=== PATIENT | female | born 1930 | race Caucasian/White ===

== ENCOUNTER 2017-05-25 09:29 | Inpatient (IN) | payer MEDICARE, BC ==
[~2017-05-25] VITALS: Ht 162.6 cm; Wt 61.3 kg
[2017-05-25 10:18] LABS: BASOPHILS 0.5 % (0-2); EOSINOPHILS 2.2 % (0-7); HEMOGLOBIN 14.3 g/dL (12-16); IMMATURE GRANULOCYTES 0.2 % (0-5); LYMPHOCYTES 24.4 % (15-50); MCH 30.6 pg (26.0-34.0); MCHC 33.3 g/dL (31.0-37.0); MCV 92.1 fL (80.0-100.0); MEAN PLATELET VOLUME 11.4 fL (7.4-10.4); MONOCYTES 8.2 % (2-11); NEUTROPHILS 64.5 % (40-80); PLATELET COUNT 183 10x3/uL (130-400); RBC 4.67 10x6/uL (4.00-5.40); RDW 14.1 % (11.5-14.5); WBC 6.4 10x3/uL (4.8-10.8)
[2017-05-25 10:29] LABS: INR 2.19 (0.85-1.17); PROTIME 24.4 SECONDS (11.6-15.0)
[2017-05-25 10:30] LABS: APTT 31.8 SECONDS (22.8-39.4)
[2017-05-25 10:40] LABS: ANION GAP 13.1 mmol/L (8-16); BILIRUBIN - TOTAL 0.6 mg/dL (0.2-1.3); CALCIUM 9.3 mg/dL (8.5-10.1); CARBON DIOXIDE 27.9 mmol/L (21.0-32.0); PROTEIN - SERUM 7.8 g/dL (6.4-8.2)
--- NOTE | 2017-05-25 16:05 | NUR ---
RECEIVED PT TO ROOM 2136 VIA WHEELCHAIR, PT ACCOMPANIED BY SISTER. ORIENTED PT AND SISTER TO ROOM AND CALL LIGHT. EXPLAINED RATIONAL FOR SCD'S TO PT, PLACED SCD'S ON BILAT, AND NON SLIP SOCKS, YELLOW BAND AND HEART MONITOR. PT DID NOT KNOW WHAT MEDS SHE TAKES AT HOME, LIST PROVIDED FROM ER IS NOT UP TO DATE ACCORDING TO PT AND PT'S SISTER. SISTER STATED THAT SHE WOULD HAVE PTS'S DAUGHTER CALL UNIT TO GIVE A LIST OF MEDS. WILL ASSESS PT AND START PLAN OF CARE. PT DENIES ANY NEEDS AT THIS TIME, CALL LIGHT IN REACH, NAD NOTED, WILL CONT TO MONITOR.
[2017-05-25 16:11] VITALS: BP 132/72
[2017-05-25 16:37] VITALS: BP 132/72; BMI 22.3
[2017-05-25] MEDS ORDERED: BETAPACE 80 MG80 MG PO (17:59)
[2017-05-25] MEDS ORDERED: LIPITOR10 MG PO (17:59)
--- NOTE | 2017-05-25 18:00 | NUR ---
RECEIVED CALL FROM AL WILKINS PT'S DAUGHTER. AL PROVIDED ME WITH 5 MEDS THAT PT TAKES AT HOME. WILL RECONCILE MEDS AT THIS TIME.
[2017-05-25] MEDS ORDERED: COUMADIN2.5 MG PO (18:01)
[2017-05-25] MEDS ORDERED: SYNTHROID50 MCG PO (18:02)
[2017-05-25] MEDS ORDERED: VITAMIN D5000 UNIT PO (18:03)
--- NOTE | 2017-05-25 18:31 | NUR ---
PT IN BED, DENIES ANY NEEDS AT THIS TIME. RESP EVEN AND UNLABORED, ON 2L NC. RT AC IV PATENT. CALL LIGHT IN REACH, NAD NOTED, WILL CONTINUE TO MONITOR.
[2017-05-25 19:00] VITALS: BP 132/78
--- NOTE | 2017-05-25 19:20 | NUR ---
SITTING ON SIDE OF BED. DENIES PAIN OR ANY NEEDS. ORIENTED X4. IV IN R AC INTACT SL. TELEMETRY SHOWS 118 UCAFIB. BED IS LOW WITH SR UP X2. ORIENTED TO CALL LIGHT TO PUSH RED BUTTON FOR ANY NEEDS.
[2017-05-26] VITALS: BP 157/87
--- NOTE | 2017-05-26 00:30 | NUR ---
REQUESTED SCD'S TO AMBULATE TO BATHROOM. NO OTHER NEEDS VOICED.
[2017-05-26 04:10] VITALS: BP 146/100
[2017-05-26 04:57] LABS: HEMATOCRIT 42.1 % (36.0-48.0); HEMOGLOBIN 13.9 g/dL (12-16); MCH 30.1 pg (26.0-34.0); MCV 91.1 fL (80.0-100.0); MEAN PLATELET VOLUME 11.3 fL (7.4-10.4); PLATELET COUNT 175 10x3/uL (130-400); RBC 4.62 10x6/uL (4.00-5.40)
[2017-05-26 04:58] LABS: WBC 2.7 10x3/uL (4.8-10.8)
[2017-05-26 05:17] LABS: INR 2.18 (0.85-1.17); PROTIME 24.3 SECONDS (11.6-15.0)
[2017-05-26 05:19] LABS: D-DIMER-QUANTITATIVE 0.44 ug/mLFEU (0.20-0.54)
[2017-05-26 05:22] LABS: ALBUMIN 2.7 g/dL (3.4-5.0); ALKALINE PHOSPHATASE 44 U/L (46-116); ALT (SGPT) 20 U/L (10-68); BILIRUBIN - TOTAL 0.41 mg/dL (0.2-1.3); CALC OSMOLALITY 287 mosm/kg (275-300); CALCIUM 9.1 mg/dL (8.5-10.1); CARBON DIOXIDE 28.6 mmol/L (21.0-32.0); CHLORIDE - SERUM 105 mmol/L (98-107); CREATININE - SERUM 0.9 mg/dL (0.6-1.3); GLUCOSE 155 mg/dL (74-106); MAGNESIUM - SERUM 1.4 mg/dL (1.8-2.4); PHOSPHOROUS 3.4 mg/dL (2.5-4.9); POTASSIUM - SERUM 4.2 mmol/L (3.5-5.1); PROTEIN - SERUM 7.5 g/dL (6.4-8.2); SODIUM 141 mmol/L (136-145); UREA NITROGEN 23 mg/dL (7-18); eGFR NON AFRICAN AMERICAN 63 mL/min (90-120)
[2017-05-26 05:28] LABS: TROPONIN-I < 0.017 ng/mL (0.000-0.060)
[2017-05-26 05:59] LABS: LYMPHOCYTES 26 % (15-50); MONOCYTES 1 % (2-11); NEUTROPHILS 68 % (40-80); PLATELET ESTIMATE DECREASED
--- NOTE | 2017-05-26 07:05 | NUR ---
ASSESSMENT COMPLETED. TELEMERTY SHOWS UCAF AT 108. CARDIZEN DRIP STARTED AT 10CC/HR. O02 AT 2 L/M PER NS. RIGHT AC IV PATENT. SCDS ON. DENIES ANY NEEDS. CALL LIGHT IN REACH WITH SR UP.
[2017-05-26 07:55] VITALS: BP 137/63
--- NOTE | 2017-05-26 08:32 | NUR ---
RESP UL ON . IV PATENT. RESTS IN BED EATING BRK. CALL LIGHT IN REACH. WILL CONT. PLAN OF CARE.
[2017-05-26 08:39] LABS: BASOPHILS 0 % (0-2); EOSINOPHILS 0 % (0-7); HEMATOCRIT 43.6 % (36.0-48.0); HEMOGLOBIN 14.2 g/dL (12-16); LYMPHOCYTES 13.6 % (15-50); MCH 30.2 pg (26.0-34.0); MCHC 32.6 g/dL (31.0-37.0); MCV 92.8 fL (80.0-100.0); MEAN PLATELET VOLUME 11.1 fL (7.4-10.4); MONOCYTES 2.3 % (2-11); NEUTROPHILS 84.1 % (40-80); PLATELET COUNT 160 10x3/uL (130-400)
[2017-05-26 08:42] LABS: WBC 4.3 10x3/uL (4.8-10.8)
[2017-05-26 11:22] VITALS: BP 110/52
[2017-05-26 13:29] VITALS: Ht 162.6 cm; Wt 61.3 kg
[2017-05-26 15:11] LABS: HEMOGLOBIN A1C 6.7 % (4.8-6.0)
[2017-05-26 15:55] VITALS: BP 99/49
--- NOTE | 2017-05-26 17:19 | NUR ---
PT UP FOR DIET.FAMILY AT BEDSIDE. CALL LIGHT IN REACH WITH SR UP. CAF 68. NO NEEDS VOICED
[2017-05-26 19:00] VITALS: BP 125/56
--- NOTE | 2017-05-26 22:34 | NUR ---
1900-REPORT RECIEVED, SHIFT ASSESSMENT COMPLETE, PLEASE SEE FLOW SHEETS FOR DETAILS. DENIES PAIN/NEEDS ATT. IV PUMP GOES OF OFTEN AND PATIENT CONCERNED ABOUT TUBING, EXPLAINED HOW IT WORKED AND PATIENT UNDERSTOOD. BED LOW AND LOCKED, CALL LIGHT IN REACH. WILL CPOC.
[2017-05-27 00:55] VITALS: BP 103/55
[2017-05-27 04:02] VITALS: BP 110/59
--- NOTE | 2017-05-27 04:15 | NUR ---
0100-RESTING, DENIES PAIN/NEEDS ATT. BED LOW AND LOCKED, CALL LIGHT IN REACH. WILL CPOC. 0300-C/O BEEPING MACHINE, OFFERED ARM BOARD, ACCEPTED. BED LOW AND LOCKED, NO OTHER NEEDS ATT. CALL LIGHT IN REACH. WILL CPOC.
[2017-05-27 06:02] LABS: BASOPHILS 0 % (0-2); EOSINOPHILS 0 % (0-7); HEMATOCRIT 38.1 % (36.0-48.0); HEMOGLOBIN 12.4 g/dL (12-16); IMMATURE GRANULOCYTES 0.1 % (0-5); LYMPHOCYTES 5.9 % (15-50); MCH 29.5 pg (26.0-34.0); MCHC 32.5 g/dL (31.0-37.0); MEAN PLATELET VOLUME 11.6 fL (7.4-10.4); MONOCYTES 2.5 % (2-11); NEUTROPHILS 91.5 % (40-80); PLATELET COUNT 182 10x3/uL (130-400); RDW 14.4 % (11.5-14.5)
[2017-05-27 06:09] LABS: MCV 90.7 fL (80.0-100.0); WBC 9.5 10x3/uL (4.8-10.8)
[2017-05-27 06:25] LABS: ANION GAP 12.4 mmol/L (8-16); CALCIUM 8.6 mg/dL (8.5-10.1); CARBON DIOXIDE 27.1 mmol/L (21.0-32.0); POTASSIUM - SERUM 4.5 mmol/L (3.5-5.1)
[2017-05-27 06:44] LABS: PROTIME 29.4 SECONDS (11.6-15.0)
[2017-05-27 06:45] LABS: INR 2.76 (0.85-1.17)
[2017-05-27 07:45] VITALS: BP 153/66
--- NOTE | 2017-05-27 07:50 | NUR ---
ASSESSMENT PER FLOW SHEET.PT WITHOUT DISTRESS. DENIES NEEDS AT PRESENT. LIGHT BRUISING NOTED TO LEFT HIP. LIGHT PINK AREAS NOTED TO BUTTOCKS,NO SIGNS OF BREAKDOWN. INSTRUCTED PT TO CALL FOR NEEDS.CALL LIGHT IN REACH.
[2017-05-27 11:37] VITALS: BP 105/54
--- NOTE | 2017-05-27 12:52 | NUR ---
HAS BEEN UP TO BATHROOM AFTER LUNCH. HAD SOME EMESIS PER PT. DR. ANTHONY IN ROOM. PT STATES SHE GETS SICK AFTER MEALS AND MOST OF THE TIME WHILE DRINKING LIQUIDS.
[2017-05-27 16:08] VITALS: BP 103/52
--- NOTE | 2017-05-27 18:47 | NUR ---
REMAINS WITHOUT DISTRESS.WITHOUT CHANGE FROM INITIAL SHIFT ASSESSMENT.CONT PLAN OF CARE
--- NOTE | 2017-05-27 19:30 | NUR ---
AWAKE ALERT DENIES PAIN. REQUESTED ASSISTANCE TO BATHROOM. IV IN R AC INTACT WITH CARDIZEM INFUSING AT 10ML/HR. ASSESSMENTS COMPLETED. ORIENTED TO CALL LIGHT FOR ANY NEEDS.
[2017-05-27 20:32] VITALS: BP 109/59
--- NOTE | 2017-05-27 22:21 | NUR ---
CALLED LAB RE: [facility], STATED IT WILL BE READY IN APPROX. 10 MORE MINS.
[2017-05-28 00:05] VITALS: BP 112/53
--- NOTE | 2017-05-28 00:30 | NUR ---
2ND UNIT OF [facility] FINISHED. ASSISTED TO BATHROOM. UNDERSTANDS SHE IS NPO FOR EGD.
--- NOTE | 2017-05-28 04:46 | NUR ---
SITTING ON SIDE OF BED. OBTAINED SIGNATURE ON CONSENT FOR EGD.
[2017-05-28 05:21] VITALS: BP 134/69
[2017-05-28 05:45] LABS: BASOPHILS 0 % (0-2); EOSINOPHILS 0 % (0-7); HEMATOCRIT 37.7 % (36.0-48.0); HEMOGLOBIN 12.5 g/dL (12-16); IMMATURE GRANULOCYTES 0.2 % (0-5); LYMPHOCYTES 7.8 % (15-50); MCH 30.4 pg (26.0-34.0); MCHC 33.2 g/dL (31.0-37.0); MCV 91.7 fL (80.0-100.0); MEAN PLATELET VOLUME 11.5 fL (7.4-10.4); MONOCYTES 8.5 % (2-11); NEUTROPHILS 83.5 % (40-80); PLATELET COUNT 165 10x3/uL (130-400); RBC 4.11 10x6/uL (4.00-5.40); RDW 14.4 % (11.5-14.5)
[2017-05-28 06:00] LABS: ANION GAP 10.2 mmol/L (8-16); CALCIUM 9.2 mg/dL (8.5-10.1); CARBON DIOXIDE 30.7 mmol/L (21.0-32.0); CREATININE - SERUM 1.1 mg/dL (0.6-1.3); POTASSIUM - SERUM 3.9 mmol/L (3.5-5.1)
[2017-05-28 06:14] LABS: INR 2.09 (0.85-1.17); PROTIME 23.5 SECONDS (11.6-15.0)
--- NOTE | 2017-05-28 07:00 | NUR ---
AM ROUNDING DONE WITH PATIENT BEING NPO FOR PROCEDURE TODAY. ON 2L PER NC. ON HEART MONITOR SHOWING CAF, HR 72. RIGHT AC WITH CARDIZEM DRIP AT 10 CC/HR. BILATERAL SCD'S ARE IN USE. PERMITS ARE SIGNED. WILL MONITOR.
[2017-05-28 07:45] VITALS: BP 140/83
--- NOTE | 2017-05-28 08:32 | NUR ---
0830-22 G X 2 STICKS TO RIGHT WRIST. 1ST UNIT OF [facility] SLOWING STATRING TO INFUSE. WILL MONITOR.
--- NOTE | 2017-05-28 08:57 | NUR ---
0859-1ST UNIT OF [facility] TRANSFUSED WITH NO REACTIONS. 2ND UNIT OF [facility] STARTED SLOWLY TRANSFUSING. WILL MONITOR.
--- NOTE | 2017-05-28 09:19 | NUR ---
0913-BETAPACE GIVEN WITH SIP OF WATER. STILL NPO FOR PROCEDURE OTHERWISE.
--- NOTE | 2017-05-28 09:28 | NUR ---
2ND UNIT OF [facility] FINISHED WITH NO REACTION. WILL CONTINUE TO MONITOR.
--- NOTE | 2017-05-28 10:50 | NUR ---
RIGHT AC IS SLIGHTLY RED AND PUFFY LOOKING. IV REMOVED WITH CATH TIP INTACT AND NEW ONE RE-SITED TO RIGHT WRIST AREA X 1 STICK.
[2017-05-28 10:56] LABS: INR 1.53 (0.85-1.17); PROTIME 18.4 SECONDS (11.6-15.0)
--- NOTE | 2017-05-28 11:04 | NUR ---
DR SANCHES PAGED WITH RESULTS OF PT/INR OF 1.53. NO NEW ORDERS RECEIVED.
[2017-05-28 11:50] VITALS: BP 134/72
--- NOTE | 2017-05-28 11:56 | NUR ---
WIN WITH GI LAB TO CALL TO SEE IF THE PATIENT WAS STILL "ON" FOR THE EGD TODAY. I TOLD HER THAT I SPOKE WITH DR SANCHES AND NO NEW ORDERS WHERE GIVEN TO STOPPING IT.
[2017-05-28 15:40] VITALS: BP 130/59
--- NOTE | 2017-05-28 15:57 | NUR ---
Nutrition Follow Up: Pt was asleep at the time of RD visit. Interview deferred. Pt NPO for EGD today. Pt was eating 70% meal avg on an AHA diet. Wt stable. +BM 05/26/17. Labs reviewed. Meds noted including Prednisone. Rec advancing diet as tolerated when medically feasible. RD following.
--- NOTE | 2017-05-28 16:56 | NUR ---
1641-PRE-OP GIVEN PER Joseph NICHOLS RN AND EKG DONE PER MYSELF. AWAITING TO STILL GO TO GI LAB. NPO STATUS.
--- NOTE | 2017-05-28 17:20 | NUR ---
TO GI LAB VIA BED.
--- NOTE | 2017-05-28 17:49 | NUR ---
1746 DILATED DISTAL ESOPHAGUS WITH 20MM 60 NIGERIAN.
--- NOTE | 2017-05-28 18:05 | NUR ---
RECEIVED REPORT FROM WIN FROM GI LAB.
--- NOTE | 2017-05-28 18:18 | NUR ---
1814-RETURNS FROM THE GI LAB. GASTRIC SOFT DIET ORDERED. DENIES ANY NEEDS EXCEPT HUNGRY. WILL MONITOR.
--- NOTE | 2017-05-28 19:20 | NUR ---
ALERT/AWAKE ORIENTED X4. REQUESTED SOME CKN NOODLE SOUP. DENIES PAIN OR ANY DISCOMFORTS. TWO IV'S IN RT FA WITH CARDIZEM INFUSING AT 10ML/HR AND 1/2 NS INFUSING AT 50ML/HR. TELEMETRY SHOWS 74 CAFIB. BED IS LOW WITH SR UP X2. ORIENTED TO CALL LIGHT FOR ANY NEEDS.
[2017-05-29] VITALS: BP 119/61
--- NOTE | 2017-05-29 02:30 | NUR ---
ASSISTED TO BATHROOM AND BACK TO BED. REQUESTED MORE ICE WATER. NO OTHER NEEDS VOICED.
[2017-05-29 04:00] VITALS: BP 124/68
[2017-05-29 05:46] LABS: BASOPHILS 0.2 % (0-2); EOSINOPHILS 0.2 % (0-7); HEMATOCRIT 38.2 % (36.0-48.0); HEMOGLOBIN 12.6 g/dL (12-16); IMMATURE GRANULOCYTES 0.2 % (0-5); LYMPHOCYTES 26.8 % (15-50); MCH 30.6 pg (26.0-34.0); MCV 92.7 fL (80.0-100.0); MEAN PLATELET VOLUME 11.2 fL (7.4-10.4); MONOCYTES 10.5 % (2-11); NEUTROPHILS 62.1 % (40-80); PLATELET COUNT 139 10x3/uL (130-400); RBC 4.12 10x6/uL (4.00-5.40); RDW 14.5 % (11.5-14.5)
[2017-05-29 05:47] LABS: WBC 5.6 10x3/uL (4.8-10.8)
[2017-05-29 05:54] LABS: ANION GAP 12.1 mmol/L (8-16); CALCIUM 8.8 mg/dL (8.5-10.1); CARBON DIOXIDE 29.6 mmol/L (21.0-32.0); CREATININE - SERUM 0.8 mg/dL (0.6-1.3); POTASSIUM - SERUM 3.7 mmol/L (3.5-5.1)
[2017-05-29 06:05] LABS: INR 1.6 (0.85-1.17)
[2017-05-29 08:02] VITALS: BP 128/63
--- NOTE | 2017-05-29 08:03 | NUR ---
Patient Name: AL FOY Admission Status: ER Accout number: [id number] Admission Date: 05-25-2017 : 1930 Admission Diagnosis:SHORTNESS OF BREATH Attending: GISELE ABAD Current LOS: 4 Anticipated DC Date: 05-29-2017 Planned Disposition: Primary Insurance: MEDICARE A & B Discharge Planning Comments: CM MET WITH PATIENT TO DISCUSS DISCHARGE NEEDS. EXPLAINED THAT DR ANTHONY HAD PUT IN AN ORDER FOR NEBULIZER AND TO SEE IF SHE NEEDED HOME OXYGEN. SHE STATED THAT SHE HAS NO EQUIPMENT AT HOME, NO WALKER, CANES, OR ANYTHING. SHE DENIES HAVING HOME HEALTH. SHE REQUESTED THAT WE USE A COMPANY IN [place] FOR HER EQUIPMENT IF POSSIBLE. IT WAS EXPLAINED THAT WE WOULD DO OUR BEST, BUT WE HAVE FOUND THAT SEVERAL COMPANIES HAVE BEEN OUT OF NEBULIZERS LATELY AND THERE IS A CHANCE WE MAY RUN INTO THAT AND HAVE TO USE SOMEONE ELSE, BUT WE WOULD LET HER KNOW. SHE SAID HER SISTER DICKSON JONES, , WOULD BE HER TRANSPORT HOME. SHE DENIES ANY NEEDS AT THIS TIME. ENCOURAGED HER TO CALL IF SHE THOUGHT OF ANYTHING WE COULD ASSIST WITH. Director Human Services: Cha Barksdale Is the patient Alert and Oriented? Yes * How many steps to enter\exit or inside your home? 0 * PCP DR MANNING * Pharmacy [facility] * Preadmission Environment Home Alone * ADLs Independent * Equipment None * List name and contact numbers for known caregivers / representatives who currently or will assist patient after discharge: DICKSON JONES, SISTER, * Community resources currently utilized None * Please name any agencies selected above. PATIENT NEEDS NEBULIZER, WANTS A COMPANY IN [place] IF POSSIBLE. * Additional services required to return to the preadmission environment? Yes * Can the patient safely return to the preadmission environment? Yes * Has this patient been hospitalized within the prior 30 days at any hospital? No
--- NOTE | 2017-05-29 08:45 | NUR ---
PAGING DOCTOR DEANA TO INQUIRE ABOUT D/C OF CARDIZEM DRIP PT IS PLANNING D/C FOR TODAY. CURRENT RHYTHM 87 CONTROLLED ATRIAL FIB.
--- NOTE | 2017-05-29 10:20 | NUR ---
PT SITTING UP ON EDGE OF BED RESTING QUIETLY. RR NONLABORED ON RA. PT DENIES ANY CURRENT PAIN OR NEEDS. CL IN REACH, BED IN LOWEST, SIDE RAILS X2. WILL CPOC.
--- NOTE | 2017-05-29 11:25 | NUR ---
Patient Name: AL FOY Encounter No: [id number] : 1930 Primary Insurance: MEDICARE A & B Anticipated DC Date: 05-29-2017 Planned Disposition: HOME DCP follow-up note: CM MET WITH PT IN ROOM AND INFORMED HER THAT THIS CM WILL BE ASSISTING WITH GETTING A NEBULIZER. PT REPORTS SHE WANTS TO USE THE COMPANY IN [place] IF THEY CAN DO IT AND IF NOT, SHE HAS NO PREFERNCE ON PROVIDER. PT DOES NOT WANT HOME DELIVERY OF NEBULIZER MEDICATIONS AND REPORTS SHE WILL PICK THEM UP AT PHARMACY THAT IS NEXT DOOR TO HER HOME. PT DENIES FURTHER NEEDS FOR DISCHARGE AT THIS TIME. IMPORTANT MESSAGE FROM MEDICARE PROVIDED AND EXPLAIN[facility]. [facility] WAS ADVISED THEY ARE OUT OF NEBULIZERS UNTIL THURSDAY OF NEXT WEEK. CM CALLED [facility], , SPOKE TO AMA WHO REPORTS NEBULIZER IN STOCK FOR HOSPITAL DELIVERY TODAY AND SERVICES [facility]. CM FAXED ORDER TO [facility] AT [phone] FOR HOSPITAL DELIVERY OF NEBULIZER. PT NOTIFIED. ERI LE, CASE MANAGEMENT
--- NOTE | 2017-05-29 11:26 | NUR ---
Patient Name: AL FOY Encounter No: [id number] : 1930 Primary Insurance: MEDICARE A & B Anticipated DC Date: 05-29-2017 Planned Disposition: HOME DCP follow-up note: CM MET WITH PT IN ROOM AND INFORMED HER THAT THIS CM WILL BE ASSISTING WITH GETTING A NEBULIZER. PT REPORTS SHE WANTS TO USE THE COMPANY IN [place] IF THEY CAN DO IT AND IF NOT, SHE HAS NO PREFERNCE ON PROVIDER. PT DOES NOT WANT HOME DELIVERY OF NEBULIZER MEDICATIONS AND REPORTS SHE WILL PICK THEM UP AT PHARMACY THAT IS NEXT DOOR TO HER HOME. PT DENIES FURTHER NEEDS FOR DISCHARGE AT THIS TIME. IMPORTANT MESSAGE FROM MEDICARE PROVIDED AND EXPLAIN[facility]. [facility] , WAS ADVISED THEY ARE OUT OF NEBULIZERS UNTIL THURSDAY OF NEXT WEEK. CM CALLED [facility], , SPOKE TO AMA WHO REPORTS NEBULIZER IN STOCK FOR HOSPITAL DELIVERY TODAY AND SERVICES [facility]. CM FAXED ORDER TO [facility] AT [phone] FOR HOSPITAL DELIVERY OF NEBULIZER. PT NOTIFIED. ERI LE, CASE MANAGEMENT
[2017-05-29 12:00] VITALS: BP 103/60
--- NOTE | 2017-05-29 12:22 | NUR ---
PAGED AGAIN TO INQUIRE ABOUT D/C OF CARDIZEM. WILL CONTINUE TO WAIT.
--- NOTE | 2017-05-29 13:15 | NUR ---
ASSUMED CARE OF PT. RR EVEN AND UNLABORED, PT DENIES NEEDS AT THIS TIME. INTRODUCED SELF AND PLACED NAME ON WHITE BOARD. WILL CTM.
--- NOTE | 2017-05-29 14:45 | NUR ---
SPOKE TO DR. RICKS ABOUT PT BEING IN CONTROLLED A-FIB ALL DAY. PT WAS SUPPOSED TO BE D/C TODAY, BUT WAS UNABLE DUE TO THE DRIP. DR. RICKS GAVE TELEPHONE ORDER TO D/C [facility]. WILL D/C AND CTM.
[2017-05-29 16:00] VITALS: BP 121/59
--- NOTE | 2017-05-29 18:30 | NUR ---
PT RESTING QUIETLY, RR EVEN AND UNLABORED. PT DENIES NEEDS AT THIS TIME. WILL GIVE REPORT ON PT CONDITION FOR THE DAY.
[2017-05-29 19:00] VITALS: BP 136/65
--- NOTE | 2017-05-29 19:25 | NUR ---
RECEIVING RESP UPDRAFT TX. ASSESSMENTS COMPLETED. IV IN R FA INTACT SL. TELEMETRY SHOWS 79 CAFIB. DENIES ANY NEEDS OR DISCOMFORTS.
--- NOTE | 2017-05-29 21:45 | NUR ---
ADMIN SCHED PO MEDS WITH SIPS OF WATER SWALLOWING WITHOUT DIFFICULTY. STATED DID NOT EAT MUCH OF HER DINNER DUE TO THE FOOD WAS TO HARD TO SWALLOW. REQUESTED SOME CHICKEN NOODLE SOUP. NO OTHER NEEDS VOICED.
[2017-05-30] VITALS: BP 155/92
[2017-05-30 04:00] VITALS: BP 126/66
--- NOTE | 2017-05-30 05:06 | NUR ---
ASSISTED TO BATHROOM. REQUESTED SOME CRACKERS.
[2017-05-30 05:16] LABS: BASOPHILS 0 % (0-2); EOSINOPHILS 0 % (0-7); HEMATOCRIT 38.3 % (36.0-48.0); HEMOGLOBIN 12.6 g/dL (12-16); IMMATURE GRANULOCYTES 0.3 % (0-5); LYMPHOCYTES 10.2 % (15-50); MCH 29.7 pg (26.0-34.0); MCHC 32.9 g/dL (31.0-37.0); MEAN PLATELET VOLUME 11.6 fL (7.4-10.4); MONOCYTES 11.4 % (2-11); NEUTROPHILS 78.1 % (40-80); PLATELET COUNT 150 10x3/uL (130-400); RBC 4.24 10x6/uL (4.00-5.40); RDW 13.8 % (11.5-14.5)
[2017-05-30 05:22] LABS: MCV 90.3 fL (80.0-100.0); WBC 7.8 10x3/uL (4.8-10.8)
[2017-05-30 05:27] LABS: INR 1.71 (0.85-1.17); PROTIME 20.1 SECONDS (11.6-15.0)
[2017-05-30 05:34] LABS: ANION GAP 12.3 mmol/L (8-16); CALCIUM 9.2 mg/dL (8.5-10.1); POTASSIUM - SERUM 3.3 mmol/L (3.5-5.1)
[2017-05-30 05:35] LABS: CREATININE - SERUM 1.1 mg/dL (0.6-1.3)
--- NOTE | 2017-05-30 07:30 | NUR ---
REPORT RECEIVED. RR EVEN AND UNLABORED. PT DENIES NEEDS AT THIS TIME, CURRENTLY CONTROLLED A-FIB ON THE MONITOR. ALERT AND ORIENTED X4. WILL CTM.
[2017-05-30 08:00] VITALS: BP 150/80
[2017-05-30 12:00] VITALS: BP 114/66
--- NOTE | 2017-05-30 15:07 | NUR ---
PT DISCHARGED. D/C INSTRUCTIONS PROVIDED. PT VERBALIZED UNDERSTANDING. PT SIGNED PAPER WITH FOLLOW UPS AND MED REC. DENIES FURTHER QUESTIONS ABOUT MEDS OR F/U. IV REMOVED WITH CATHETER TIP INTACT, TELE REMOVED AND RETURNED TO MANAGER OF WAREHOUSE. WILL BE LEAVING WITH SISTER VIA WHEELCHAIR. ADENIKE VERNONM UNTIL D/C.
--- NOTE | 2017-06-12 16:56 | EC ---
PATIENT:AL FOY DATE OF SERVICE: 05/25/17 SEX: F MEDICAL RECORD: [id number] DATE OF : [birth year] LOCATION:D.M2 D.213 AGE OF PATIENT: 86 ADMISSION DATE: 05/25/17 REFERRING PHYSICIAN: INTERPRETING PHYSICIAN: RONALD JIMENEZ MD ECHOCARDIOGRAM REPORT ECHO CHARGES 4 ECHO COMPLETE CLINICAL DIAGNOSIS: SOB/AFIB HX OF PACER/STENT/CAD ECHOCARDIOGRAPHIC MEASUREMENTS (adult normal given) AC root (d.<3.7cm) 2.9 cm LV Septum d (<1.2 cm> 1.5 cm Valve Excursion 1.5 cm LV Septum (systole) 1.9 cm Left Atria (s.<4.0cm> 3.8 cm LVPW d(<1.2cm) 1.3 cm RV (d.<2.3cm) 3.0 cm LVPW (sytole) 1.9 cm LV diastole(<5.6CM) 3.9 cm MV E-F(>70mm/sec) cm LV systole 2.2 cm LVOT Diameter 1.8 cm MV exc.(>10mm) 1.2 cm Est.ejection fraction (50-75%) % Pericardial Effusion N DOPPLER: LVIT cm/sec A 84.0 cm/sec E cm/sec LA cm/sec RVSP 45 mmHg LVOT 76 cm/sec AOP1/2T m/s Asc. Ao 109 cm/sec RVOT 60 cm/sec RA cm/sec PA 70 cm/sec AV Gradient Peak 4.79 mmHg AV Mean 2.41 mmHg AV Area 1.6 cm MV Gradient Peak 5.36 mmHg MV Mean 1.31 mmHg MV Area cm COMMENTS: Grain Cleaner: Sergio GARCIA Timber Faller: 1 Dr. Jimenez TAPE# PACS DATE OF SERVICE: 05/26/2017 PROCEDURE: Echocardiogram. FINDINGS: 1. Left ventricle chamber size is within normal limits. Left ventricular systolic function is normal. Overall ejection fraction estimated at 55%. 2. Left atrium is within normal limits at 3.8 cm. Right atrium and right ventricle chamber sizes are mildly dilated. 3. Valvular structures have normal structure and motion. ECHOCARDIOGRAM REPORT [id number] AL FOY 4. Doppler interrogation reveals mild to moderate mitral regurgitation, severe tricuspid regurgitation, no other valvular insufficiency or stenosis. Pulmonary systolic pressure is mildly elevated, estimated at 45 mmHg. 5. No evidence of pericardial effusion or left ventricular thrombus. TRANSINT:[id number] Voice Confirmation ID: [id number] DOCUMENT ID: [id number] RONALD JIMENEZ MD at 1656 CC: [id number] DICTATION DATE: 05/27/17 1022 HAZARDOUS WASTE TECHNICIAN: 05/27/17 1105 DIS IN 05/30/17 [place] [place] [address]
== END 2017-05-30 15:24 | disposition home or self-care (01) | DRG 192 ==
LOC: D.ER 09:29 → D.M2 14:56
PROVIDERS: Emergency Medicine; Internal Medicine Gastroenterology; Internal Medicine Pulmonary Disease; ADMIT Family Medicine
PROC: 0DB78ZX Excision of Stomach, Pylorus, Via Natural or Artificial Opening Endoscopic, Diagnostic (ICD-10-PCS; 2017-05-28)
PROC: 0D758ZZ Dilation of Esophagus, Via Natural or Artificial Opening Endoscopic (ICD-10-PCS; principal; 2017-05-28 15:00)
DX: J44.1 Chronic obstructive pulmonary disease with (acute) exacerbation (principal); K22.2 Esophageal obstruction; Z79.01 Long term (current) use of anticoagulants; I48.0 Paroxysmal atrial fibrillation; I10 Essential (primary) hypertension; I25.10 Atherosclerotic heart disease of native coronary artery without angina pectoris; E03.9 Hypothyroidism, unspecified; E78.5 Hyperlipidemia, unspecified; E55.9 Vitamin D deficiency, unspecified; R73.9 Hyperglycemia, unspecified; I08.1 Rheumatic disorders of both mitral and tricuspid valves; I27.20 Pulmonary hypertension, unspecified; K44.9 Diaphragmatic hernia without obstruction or gangrene; K25.9 Gastric ulcer, unspecified as acute or chronic, without hemorrhage or perforation; Z95.0 Presence of cardiac pacemaker; Z95.5 Presence of coronary angioplasty implant and graft; Z87.891 Personal history of nicotine dependence

== ENCOUNTER → 2017-10-27 11:30 | Outpatient (CLI) | payer MEDICARE, BC ==
[2017-05-26 13:29] VITALS: BMI 22.3
[~2017-10-27 11:30] MED LIST: BETAPACE 80 MG80 MG PO; COUMADIN2.5 MG PO; LIPITOR10 MG PO; SYNTHROID50 MCG PO; VITAMIN D5000 UNIT PO
== END | disposition home or self-care (01) ==
LOC: D.RT 11:00
DX: J44.9 Chronic obstructive pulmonary disease, unspecified (principal)

== ENCOUNTER 2018-09-27 16:22 | Emergency (ER) | payer MEDICARE, BC ==
[~2018-09-27] VITALS: Ht 162.6 cm; Wt 65.9 kg
[2018-09-27 16:27] VITALS: Ht 162.6 cm; Wt 65.9 kg
[2018-09-27 16:57] LABS: BASOPHILS 1.4 % (0-2); EOSINOPHILS 6.3 % (0-7); HEMATOCRIT 42.7 % (36.0-48.0); HEMOGLOBIN 13.9 g/dL (12-16); IMMATURE GRANULOCYTES 0.3 % (0-5); LYMPHOCYTES 29.9 % (15-50); MCH 30.3 pg (26.0-34.0); MCHC 32.6 g/dL (31.0-37.0); MCV 93.2 fL (80.0-100.0); MEAN PLATELET VOLUME 10.6 fL (7.4-10.4); MONOCYTES 15.9 % (2-11); NEUTROPHILS 46.2 % (40-80); PLATELET COUNT 175 10x3/uL (130-400); RBC 4.58 10x6/uL (4.00-5.40); RDW 14.3 % (11.5-14.5); WBC 3.7 10x3/uL (4.8-10.8)
[2018-09-27 17:18] LABS: APTT 32.8 SECONDS (22.8-39.4); INR 1.81 (0.85-1.17); PROTIME 20.3 SECONDS (11.6-15.0)
[2018-09-27 17:19] LABS: ANION GAP 14.9 mmol/L (8-16); BILIRUBIN - TOTAL 0.46 mg/dL (0.2-1.3); CALCIUM 8.5 mg/dL (8.5-10.1); CARBON DIOXIDE 28.9 mmol/L (21.0-32.0); D-DIMER-QUANTITATIVE 0.47 ug/mLFEU (0.20-0.54); POTASSIUM - SERUM 3.8 mmol/L (3.5-5.1); PROTEIN - SERUM 7.2 g/dL (6.4-8.2)
[2018-09-27 17:23] LABS: TROPONIN-I 0.018 ng/mL (0.000-0.060)
[2018-09-27] MEDS ORDERED: STERAPRED DS 1010 MG PO (18:46)
[2018-09-27] MEDS ORDERED: AUGMENTIN 875-11 TAB PO (18:47)
[2018-09-27 19:30] VITALS: BP 153/87
== END 2018-09-27 19:30 | disposition home or self-care (01) ==
LOC: D.ER 16:22
PROVIDERS: Family Medicine
DX: J44.1 Chronic obstructive pulmonary disease with (acute) exacerbation (principal); J40 Bronchitis, not specified as acute or chronic; R05 Cough; I10 Essential (primary) hypertension; Z79.01 Long term (current) use of anticoagulants

== ENCOUNTER 2018-10-30 13:41 | Inpatient (IN) | payer MEDICARE, BC ==
[~2018-10-30] VITALS: Ht 162.6 cm; Wt 68.2 kg
[~2018-10-30 13:41] MED LIST changes: +AUGMENTIN 875-11 TAB PO; +STERAPRED DS 1010 MG PO
[2018-10-30 14:57] LABS: BASOPHILS 0.5 % (0-2); EOSINOPHILS 1.8 % (0-7); IMMATURE GRANULOCYTES 0.3 % (0-5); LYMPHOCYTES 23.5 % (15-50); MCH 30.1 pg (26.0-34.0); MCHC 31.7 g/dL (31.0-37.0); MCV 94.9 fL (80.0-100.0); MEAN PLATELET VOLUME 10.5 fL (7.4-10.4); MONOCYTES 12.2 % (2-11); NEUTROPHILS 61.7 % (40-80); PLATELET COUNT 214 10x3/uL (130-400); RBC 4.32 10x6/uL (4.00-5.40); RDW 14.1 % (11.5-14.5); WBC 6.2 10x3/uL (4.8-10.8)
[2018-10-30 15:01] LABS: CREATINE KINASE 127 UL (21-215); PRO BNP 2971 pg/mL (0-450)
[2018-10-30 15:02] LABS: TROPONIN-I < 0.017 ng/mL (0.000-0.060)
[2018-10-30 15:04] LABS: INR 1.38 (0.85-1.17); PROTIME 16.4 SECONDS (11.6-15.0)
[2018-10-30 15:07] LABS: ALBUMIN 2.6 g/dL (3.4-5.0); ANION GAP 6.8 mmol/L (8-16); BILIRUBIN - TOTAL 0.59 mg/dL (0.2-1.3); CALCIUM 8.9 mg/dL (8.5-10.1); CARBON DIOXIDE 33.4 mmol/L (21.0-32.0); CREATININE - SERUM 0.9 mg/dL (0.6-1.3); POTASSIUM - SERUM 4.2 mmol/L (3.5-5.1); PROTEIN - SERUM 7.2 g/dL (6.4-8.2)
[2018-10-30 15:43] VITALS: BP 110/68
[2018-10-30 16:00] VITALS: BP 136/73
--- NOTE | 2018-10-30 16:19 | MORECARE ---
CASE MANAGEMENT DISCHARGE SUMMARY PATIENT: AL FOY UNIT: [id number] ADM DATE: 10/30/18 AGE: 87 : [birth year] SEX: F ROOM/BED: D.2236 AUTHOR: TUNDE CROWDER PHYSICIAN: REFERRING PHYSICIAN: YONY OVALLES MD DATE OF SERVICE: 10/30/18 Discharge Plan Patient Name: AL FOY [facility] [facility] 1930 Planned Disposition: Home Anticipated Discharge Date: 11/01/18 Discharge Date: Expected LOS: 2 Initial Reviewer: [email or web address] Initial Review Date: 10/30/2018 Generated: 10/30/18 5:19 pm Patient Name: AL FOY Page [id number] at 1619 All edits/amendments must be made on the electronic document DICTATION DATE: 10/30/181617 ROVING FRAME TENDER: STEPHAN 10/30/181617 RPT#: [id number] DC DATE: STATUS: ADM IN [facility] [address] [place] [address] END OF REPORT
--- NOTE | 2018-10-30 16:26 | MORECARE ---
CASE MANAGEMENT DISCHARGE SUMMARY PATIENT: AL FOY UNIT: [id number] ADM DATE: 10/30/18 AGE: 87 : [birth year] SEX: F ROOM/BED: D.2236 AUTHOR: VELDOC PHYSICIAN: REFERRING PHYSICIAN: YONY OVALLES MD DATE OF SERVICE: 10/30/18 Discharge Plan Patient Name: AL FOY Facility: [facility]:[place] : 1930 Planned Disposition: Home Anticipated Discharge Date: 11/01/18 Discharge Date: Expected LOS: 2 Initial Reviewer: [email or web address] Initial Review Date: 10/30/2018 Generated: 10/30/18 5:25 pm DCP- Discharge Planning Updated by [email or web address]: Rema Jones on 10/30/18 3:[address] Patient Name: AL FOY Admission Status: ER Accout number: [id number] Admission Date: 10-30-2018 : 1930 Admission Diagnosis: Attending: YONY OVALLES Current LOS: 1 Anticipated DC Date: 11-01-2018 Planned Disposition: Home Primary Insurance: MEDICARE A & B Discharge Planning Comments: CM met with patient to complete initial dc planning assessment. CM educated patient on the CM role and verbal consent given by patient to complete assessment. Patient lives at home with her sister and reports she is independent in her care. Her sister reminds her to take her medication every evening. At discharge patient plans to return to her sisters and feels this is a safe discharge. CM discussed availability of home health, rehab services, and medical equipment. Patient denied known discharge needs at this time. CM will continue to follow and will assist as needed with dc plans/needs. Education Liaison: Rema Jones RN, [facility] DCPIA - Discharge Planning Initial Assessment Updated by [email or web address]: Rema Jones on 10/30/18 4:19 pm * Is the patient Alert and Oriented? Yes * How many steps to enter\exit or inside your home? None * PCP Dr. Piper * Pharmacy [facility] pharmacy in [place] * Preadmission Environment Home with Family * ADLs Independent * Equipment Nebulizer Oxygen Rolling Walker * List name and contact numbers for known caregivers / representatives who currently or will assist patient after discharge: Lisa Claire sister - [phone] Shantell Contreras - daughter - [phone] * Verbal permission to speak to the caregivers and representatives has been obtained from the patient. Yes * Community resources currently utilized None * Additional services required to return to the preadmission environment? No * Can the patient safely return to the preadmission environment? Yes * Has this patient been hospitalized within the prior 30 days at any hospital? No Last DP export: 10/30/18 3:19 p Patient Name: AL FOY Page [id number] at 1626 All edits/amendments must be made on the electronic document DICTATION DATE: 10/30/181624 PERSONAL CHEF: STEPHAN 10/30/181624 RPT#: [id number] DC DATE: STATUS: ADM IN [facility] [address] [place] [address] END OF REPORT
--- NOTE | 2018-10-30 16:46 | NUR ---
RECIEVED PT FROM ER, AMBULATORY, 02 PRESENT AT 2LPM, IV TO LEFT HAND, PATENT, SALINE LOCKED, AAOX4, DENIES ANY CURRENT NEEDS OR DISCOMFORTS, BED LOWERED AND LOCKED, CALL LIGHT WITHIN REACH. CPOC
[2018-10-30 17:19] VITALS: BP 128/68; Ht 162.6 cm; Wt 68.2 kg
[2018-10-30 20:00] VITALS: BP 132/70; BP 138/79
--- NOTE | 2018-10-30 22:00 | NUR ---
PT IN [place], YELLING, "MOTHER!?" PT WAS VERY CONFUSED. ALERT, ORIENTED X 1. SHE BELIEVED HER MOTHER WAS THERE AND WAS UNSURE OF WHERE SHE WAS. SHE TOLD ANOTHER STAFF MEMBERM HER MOTHER WAS OON THE FLOOR IN THE ROOM. ABLE TO STATE NAME, AGE AND . SLOWLY BEGAN TO BECOME MORE ORIENTED AFTER PROMPTING. KEI ALARM PLACED, SKID PROOF SOCKS APPLIED. SIDE RAILS X 2. PT REFUSED TO CHANGE FROM HER PJs TO YELLOW GOWN TONIGHT. YELLOW BAND PLACED ON PT. SHE IS ORIENTED X 4 AND LAYING DOWN NOW. CL IN REACH, WILL CONTINUE TO MONITOR CLOSELY.
[2018-10-31] VITALS: BP 158/88
[2018-10-31 04:00] VITALS: BP 153/78
[2018-10-31] MEDS ORDERED: IBUPROFEN200 MG PO (04:21)
[2018-10-31] MEDS ORDERED: ADVIL200 MG PO (04:23)
--- NOTE | 2018-10-31 04:29 | NUR ---
I have reviewed this patient and I concur with the Shift Assessment completed by the Licensed Practical Nurse today this shift.
--- NOTE | 2018-10-31 08:20 | NUR ---
LAYING IN BED, ON 02 PRESENT AT 2LPM, C/O OF DISCOMFORT RIGHT POSTERIOR UPPER BACK WHEN TAKING DEEP BREATH, LUNGS SOUNDS CLEAR WITH AUSCULTATION SOB WITH EXCERTION, USES CANE FOR AMBULATION, DENIES ANY CURRENT NEEDS OR DISCOMFORTS, BED LOWERED AND LOCKED, CALL LIGHT WITHIN REACH. CPOC
[2018-10-31 08:36] LABS: BASOPHILS 0.3 % (0-2); EOSINOPHILS 0 % (0-7); HEMATOCRIT 40.4 % (36.0-48.0); HEMOGLOBIN 13.4 g/dL (12-16); IMMATURE GRANULOCYTES 0.3 % (0-5); LYMPHOCYTES 18.2 % (15-50); MCH 30.5 pg (26.0-34.0); MCHC 33.2 g/dL (31.0-37.0); MEAN PLATELET VOLUME 10.3 fL (7.4-10.4); MONOCYTES 1.7 % (2-11); NEUTROPHILS 79.5 % (40-80); PLATELET COUNT 223 10x3/uL (130-400); RBC 4.39 10x6/uL (4.00-5.40); RDW 13.9 % (11.5-14.5)
[2018-10-31 08:49] LABS: ANION GAP 11.3 mmol/L (8-16); CALCIUM 8.9 mg/dL (8.5-10.1); CARBON DIOXIDE 30.2 mmol/L (21.0-32.0); CREATININE - SERUM 1.1 mg/dL (0.6-1.3); POTASSIUM - SERUM 3.5 mmol/L (3.5-5.1); WBC 3.5 10x3/uL (4.8-10.8)
[2018-10-31 10:02] VITALS: BP 117/68
[2018-10-31 13:10] VITALS: BP 122/69
--- NOTE | 2018-10-31 15:10 | NUR ---
I have reviewed this patient and I concur with the Shift Assessment completed by the Licensed Practical Nurse today this shift.
[2018-10-31 16:31] VITALS: BP 120/69
[2018-10-31 17:46] LABS: CKMB 1.1 U/L (0.0-3.6); CREATINE KINASE 35 UL (21-215); TROPONIN-I 0.018 ng/mL (0.000-0.060)
[2018-10-31 20:00] VITALS: BP 127/75
[2018-10-31 22:51] LABS: CKMB 1.2 U/L (0.0-3.6); CREATINE KINASE 44 UL (21-215)
[2018-10-31 22:55] LABS: TROPONIN-I < 0.017 ng/mL (0.000-0.060)
[2018-11-01 03:58] LABS: BASOPHILS 0.1 % (0-2); EOSINOPHILS 0 % (0-7); HEMATOCRIT 39.7 % (36.0-48.0); HEMOGLOBIN 12.8 g/dL (12-16); IMMATURE GRANULOCYTES 0.4 % (0-5); LYMPHOCYTES 6.5 % (15-50); MCH 29.8 pg (26.0-34.0); MCHC 32.2 g/dL (31.0-37.0); MCV 92.3 fL (80.0-100.0); MEAN PLATELET VOLUME 10.2 fL (7.4-10.4); MONOCYTES 3.2 % (2-11); NEUTROPHILS 89.8 % (40-80); PLATELET COUNT 234 10x3/uL (130-400); RDW 14.5 % (11.5-14.5)
[2018-11-01 04:00] VITALS: BP 138/65
[2018-11-01 04:02] LABS: INR 1.35 (0.85-1.17); PROTIME 16.1 SECONDS (11.6-15.0)
[2018-11-01 04:04] LABS: WBC 9.7 10x3/uL (4.8-10.8)
--- NOTE | 2018-11-01 04:14 | NUR ---
I have reviewed this patient and I concur with the Shift Assessment completed by the Licensed Practical Nurse today this shift.
[2018-11-01 04:33] LABS: CALC OSMOLALITY 292 mosm/kg (275-300); CALCIUM 9.1 mg/dL (8.5-10.1); CHLORIDE - SERUM 101 mmol/L (98-107); CKMB 1.4 U/L (0.0-3.6); CREATINE KINASE 39 UL (21-215); CREATININE - SERUM 1.2 mg/dL (0.6-1.3); GLUCOSE 192 mg/dL (74-106); POTASSIUM - SERUM 3.8 mmol/L (3.5-5.1); SODIUM 142 mmol/L (136-145); TROPONIN-I < 0.017 ng/mL (0.000-0.060); UREA NITROGEN 27 mg/dL (7-18); eGFR NON AFRICAN AMERICAN 45 mL/min (90-120)
--- NOTE | 2018-11-01 07:35 | NUR ---
PT SITTING UP ON THE SIDE OF THE BED. PT ALERT AND ORIENTED. NO S/S OF ACUTE DISTRESS NOTED. PT CONFUSED AT TIMES. PT UP WITH ASSIST, CANE AT BEDSIDE. KEI ALARM PRESENT AND ON. PT ON 2L O2, NC. IV TO RIGHT HAND, SL. SITE PATENT WITHOUT REDNESS OR SWELLING. PT DENIES ANYTHING FURTHER AT THIS TIME. CALL LIGHT IN REACH. WILL CONTINUE TO MONITOR.
[2018-11-01 09:31] VITALS: BP 153/107
[2018-11-01 13:00] VITALS: BP 139/74
--- NOTE | 2018-11-01 15:05 | MORECARE ---
CASE MANAGEMENT DISCHARGE SUMMARY PATIENT: AL FOY UNIT: [id number] ADM DATE: 10/30/18 AGE: 87 : [birth year] SEX: F ROOM/BED: D.2236 AUTHOR: VELDOC PHYSICIAN: REFERRING PHYSICIAN: YONY OVALLES MD DATE OF SERVICE: 11/01/18 Discharge Plan Patient Name: AL FOY Facility: [facility]:[place] : 1930 Planned Disposition: Home Anticipated Discharge Date: 11/01/18 Discharge Date: Expected LOS: 2 Initial Reviewer: [email or web address] Initial Review Date: 10/30/2018 Generated: 11/01/18 4:05 pm DCP- Discharge Planning Updated by [email or web address]: Rema Jones on 10/30/18 3:[address] Patient Name: AL FOY Admission Status: ER Accout number: [id number] Admission Date: 10-30-2018 : 1930 Admission Diagnosis: Attending: YONY OVALLES Current LOS: 1 Anticipated DC Date: 11-01-2018 Planned Disposition: Home Primary Insurance: MEDICARE A & B Discharge Planning Comments: CM met with patient to complete initial dc planning assessment. CM educated patient on the CM role and verbal consent given by patient to complete assessment. Patient lives at home with her sister and reports she is independent in her care. Her sister reminds her to take her medication every evening. At discharge patient plans to return to her sisters and feels this is a safe discharge. CM discussed availability of home health, rehab services, and medical equipment. Patient denied known discharge needs at this time. CM will continue to follow and will assist as needed with dc plans/needs. Documentation Improvement Specialist: Rema Jones RN, [facility] DCPIA - Discharge Planning Initial Assessment Updated by [email or web address]: Rema Jones on 10/30/18 4:19 pm * Is the patient Alert and Oriented? Yes * How many steps to enter\exit or inside your home? None * PCP Dr. Piper * Pharmacy [facility] pharmacy in [place] * Preadmission Environment Home with Family * ADLs Independent * Equipment Nebulizer Oxygen Rolling Walker * List name and contact numbers for known caregivers / representatives who currently or will assist patient after discharge: Lisa Claire sister - [phone] Shantell Contreras - daughter - [phone] * Verbal permission to speak to the caregivers and representatives has been obtained from the patient. Yes * Community resources currently utilized None * Additional services required to return to the preadmission environment? No * Can the patient safely return to the preadmission environment? Yes * Has this patient been hospitalized within the prior 30 days at any hospital? No External Providers External Provider: [facility] Patient-[place] Next Contact Date: Service Request Date: Service Type: Resolution: Reviewer: Comments: Last DP export: 10/30/18 3:25 p Patient Name: AL FOY Page 78909 at 1505 All edits/amendments must be made on the electronic document DICTATION DATE: 11/01/18 1505 REPLANTING MACHINE CREWMAN: STEPHAN 11/01/18 1505 RPT#: [id number] DC DATE: STATUS: ADM IN [facility] [address] [place] [address] END OF REPORT
--- NOTE | 2018-11-01 16:22 | MORECARE ---
CASE MANAGEMENT DISCHARGE SUMMARY PATIENT: AL FOY UNIT: [id number] ADM DATE: 10/30/18 AGE: 87 : [birth year] SEX: F ROOM/BED: D.2236 AUTHOR: TUNDE CROWDER PHYSICIAN: REFERRING PHYSICIAN: YONY OVALLES MD DATE OF SERVICE: 11/01/18 Discharge Plan Patient Name: AL FOY Facility: [facility]:[place] : 1930 Planned Disposition: Home Anticipated Discharge Date: 11/01/18 Discharge Date: Expected LOS: 2 Initial Reviewer: [email or web address] Initial Review Date: 10/30/2018 Generated: 11/01/18 5:22 pm Comments DCP- Discharge Planning Updated by [email or web address]: Page Rae on 11/01/18 3:[address] Met with patient concerning discharge planning. She states that she needs to have her concentrator changed to a smaller one because it is too loud. She also states her nebulizer is hot when she holds it and needs new supplies. I called [facility] and Ila states she has portable oxygen and oxygen through [facility]. The patient states she does not have a portable oxygen. Walk test done and she qualifies for portable oxygen. I informed Frank with [facility] and informed of other needs and order faxed. CM will continue to follow and assist with discharge planning/needs. DCP- Discharge Planning Updated by [id number]: Rema Jones on 10/30/18 3:[address] Patient Name: AL FOY Admission Status: ER Accout number: [id number] Admission Date: 10-30-2018 : 1930 Admission Diagnosis: Attending: YONY OVALLES Current LOS: 1 Anticipated DC Date: 11-01-2018 Planned Disposition: Home Primary Insurance: MEDICARE A & B Discharge Planning Comments: CM met with patient to complete initial dc planning assessment. CM educated patient on the CM role and verbal consent given by patient to complete assessment. Patient lives at home with her sister and reports she is independent in her care. Her sister reminds her to take her medication every evening. At discharge patient plans to return to her sisters and feels this is a safe discharge. CM discussed availability of home health, rehab services, and medical equipment. Patient denied known discharge needs at this time. CM will continue to follow and will assist as needed with dc plans/needs. Patrol Inspector: Rema Jones RN, [facility] DCPIA - Discharge Planning Initial Assessment Updated by [email or web address]: Rema Jones on 10/30/18 4:19 pm * Is the patient Alert and Oriented? Yes * How many steps to enter\exit or inside your home? None * PCP Dr. Piper * Pharmacy [facility] pharmacy in [place] * Preadmission Environment Home with Family * ADLs Independent * Equipment Nebulizer Oxygen Rolling Walker * List name and contact numbers for known caregivers / representatives who currently or will assist patient after discharge: Lisa Garcia - sister - [phone] Shatnell Contreras - daughter - [phone] * Verbal permission to speak to the caregivers and representatives has been obtained from the patient. Yes * Community resources currently utilized None * Additional services required to return to the preadmission environment? No * Can the patient safely return to the preadmission environment? Yes * Has this patient been hospitalized within the prior 30 days at any hospital? No Last DP export: 11/01/18 2:05 p Patient Name: AL FOY Page [id number] at 1622 All edits/amendments must be made on the electronic document DICTATION DATE: 11/01/181620 DISTRICT SALES REPRESENTATIVE: STEPHAN 11/01/181620 RPT#: [id number] DC DATE: STATUS: ADM IN [facility] [address] [place] [address] END OF REPORT
--- NOTE | 2018-11-01 18:27 | NUR ---
PT SITTING UP ON THE SIDE OF THE BED. PT C/O BACK PAIN, GAVE TRAMADOL FOR PAIN. NO S/S OF ACUTE DISTRESS NOTED. CALL LIGHT IN REACH. PT DENIES ANYTHING FURTHER AT THIS TIME. WILL CONTINUE TO MONITOR.
[2018-11-01 18:57] VITALS: BP 196/91
--- NOTE | 2018-11-01 19:10 | NUR ---
I have reviewed this patient and I concur with the Shift Assessment completed by the Licensed Practical Nurse today this shift.
[2018-11-01 20:00] VITALS: BP 171/92
[2018-11-02 04:00] VITALS: BP 177/86
[2018-11-02 04:33] LABS: BASOPHILS 0 % (0-2); EOSINOPHILS 0 % (0-7); HEMATOCRIT 40.4 % (36.0-48.0); IMMATURE GRANULOCYTES 0.2 % (0-5); LYMPHOCYTES 5.8 % (15-50); MCH 30.1 pg (26.0-34.0); MCHC 32.2 g/dL (31.0-37.0); MCV 93.5 fL (80.0-100.0); MEAN PLATELET VOLUME 10.5 fL (7.4-10.4); MONOCYTES 4.2 % (2-11); NEUTROPHILS 89.8 % (40-80); PLATELET COUNT 249 10x3/uL (130-400); RBC 4.32 10x6/uL (4.00-5.40); RDW 14.4 % (11.5-14.5); WBC 9.4 10x3/uL (4.8-10.8)
[2018-11-02 04:43] LABS: ANION GAP 7.5 mmol/L (8-16); CALCIUM 8.3 mg/dL (8.5-10.1); CREATININE - SERUM 1.2 mg/dL (0.6-1.3); POTASSIUM - SERUM 3.5 mmol/L (3.5-5.1)
--- NOTE | 2018-11-02 05:00 | NUR ---
I have reviewed this patient and I concur with the Shift Assessment completed by the Licensed Practical Nurse today this shift.
--- NOTE | 2018-11-02 07:30 | NUR ---
PT SITTING UP IN BED. EYES OPEN. NO C/O PAIN. NO S/S OF ACUTE DISTRESS NOTED. PT DENIES ANYTHING FURTHER AT THIS TIME. CALL LIGHT IN REACH. WILL CONTINUE TO MONITOR.
[2018-11-02 09:36] VITALS: BP 128/69
[2018-11-02] MEDS ORDERED: FLORAJEN3 CAPS460 MG PO (10:28)
[2018-11-02] MEDS ORDERED: ZITHROMAX250 MG PO (10:29)
[2018-11-02] MEDS ORDERED: PREDNISONE10 MG PO (10:29)
[2018-11-02] MEDS ORDERED: LASIX40 MG PO (10:30)
[2018-11-02] MEDS ORDERED: POTASSIUM CHLO10 ME1 PO (10:30)
--- NOTE | 2018-11-02 10:55 | MORECARE ---
CASE MANAGEMENT DISCHARGE SUMMARY PATIENT: AL FOY UNIT: [id number] ADM DATE: 10/30/18 AGE: 87 : [birth year] SEX: F ROOM/BED: D.2236 AUTHOR: VEL,DOC PHYSICIAN: REFERRING PHYSICIAN: YONY OVALLES MD DATE OF SERVICE: 11/02/18 Discharge Plan Patient Name: AL FOY Facility: [facility]:[place] : 1930 Planned Disposition: Home Anticipated Discharge Date: 11/01/18 Discharge Date: Expected LOS: 2 Initial Reviewer: [email or web address] Initial Review Date: 10/30/2018 Generated: 11/02/18 11:55 am Comments DCP- Discharge Planning Updated by [email or web address]: Pagedeena Rae on 11/02/18 9:[address] Received orders for discharge. Signed oxygen and nebulizer supplies faxed to [facility]. I called Frank with [facility] and they will deliver portable oxygen. I informed the patient that she needs portable oxygen before going home. I called and spoke to Kaleigh at [facility] and they will see her "in a couple of days". Clinical faxed to [place]. CM will continue to follow and assist with discharge planning/needs. DCP- Discharge Planning Updated by [id number]: Page Perkinsmaggie on 11/01/18 3:[address] Met with patient concerning discharge planning. She states that she needs to have her concentrator changed to a smaller one because it is too loud. She also states her nebulizer is hot when she holds it and needs new supplies. I called [facility] and Ila states she has portable oxygen and oxygen through [facility]. The patient states she does not have a portable oxygen. Walk test done and she qualifies for portable oxygen. I informed Frank with [facility] and informed of other needs and order faxed. CM will continue to follow and assist with discharge planning/needs. DCP- Discharge Planning Updated by [id number]: Rema Jones on 10/30/18 3:[address] Patient Name: AL FOY Admission Status: ER Accout number: [id number] Admission Date: 10-30-2018 : 1930 Admission Diagnosis: Attending: YONY OVALLES Current LOS: 1 Anticipated DC Date: 11-01-2018 Planned Disposition: Home Primary Insurance: MEDICARE A & B Discharge Planning Comments: CM met with patient to complete initial dc planning assessment. CM educated patient on the CM role and verbal consent given by patient to complete assessment. Patient lives at home with her sister and reports she is independent in her care. Her sister reminds her to take her medication every evening. At discharge patient plans to return to her sisters and feels this is a safe discharge. CM discussed availability of home health, rehab services, and medical equipment. Patient denied known discharge needs at this time. CM will continue to follow and will assist as needed with dc plans/needs. Stoker Installer: Rema Jones RN, [facility] DCPIA - Discharge Planning Initial Assessment Updated by [id number]: Rema Jones on 10/30/18 4:19 pm * Is the patient Alert and Oriented? Yes * How many steps to enter\\exit or inside your home? None * PCP Dr. Piper * Pharmacy [facility] pharmacy in [place] * Preadmission Environment Home with Family * ADLs Independent * Equipment Nebulizer Oxygen Rolling Walker * List name and contact numbers for known caregivers / representatives who currently or will assist patient after discharge: Lisa Garcia - sister - [phone] Shantell Contreras - daughter - [phone] * Verbal permission to speak to the caregivers and representatives has been obtained from the patient. Yes * Community resources currently utilized None * Additional services required to return to the preadmission environment? No * Can the patient safely return to the preadmission environment? Yes * Has this patient been hospitalized within the prior 30 days at any hospital? No External Providers External Provider: [facility] Next Contact Date: Service Request Date: Service Type: Resolution: Reviewer: Comments: Coverage Notice Reviewer: [id number] Dakotah Rae Notice Issued Date-Time: 11/02/2018 10:16 Notice Type: IM Discharge Notice Notice Delivered To: Patient Relationship to Patient: Self Dry House Wheeler Name: Delivery Method: HAND - Hand Delivered Kayla Days: Prior Verbal Notification: Recipient Understood Notice: Yes Recipient Signature: Yes Med Rec Note Co-signed by Attending: Coverage Notice Comment: IMM explained, signed, given, copy placed in MR Last DP export: 11/01/18 3:22 p Patient Name: AL FOY Page [id number] at 1055 All edits/amendments must be made on the electronic document DICTATION DATE: 11/02/181053 RIBBON INKER: STEPHAN 11/02/181053 RPT#: [id number] DC DATE: STATUS: ADM IN [facility] [address] [place] [address] END OF REPORT
[2018-11-02 14:16] VITALS: BP 129/67
--- NOTE | 2018-11-02 15:36 | NUR ---
PT DISCHARGED HOME WITH SISTER VIA WHEELCHAIR. DISCONTINUED IV, CATHETER TIP INTACT. NO C/O PAIN. NO S/S OF ACUTE DISTRESS NOTED. WENT OVER DISCHARGE INSTRUCTIONS WITH PT, PT DENIES ANY CONCERNS OR QUESTIONS.
--- NOTE | 2018-11-03 15:59 | MORECARE ---
CASE MANAGEMENT DISCHARGE SUMMARY PATIENT: AL FOY UNIT: [id number] ADM DATE: 10/30/18 AGE: 87 : [birth year] SEX: F ROOM/BED: D.2236 AUTHOR: VEL,DOC PHYSICIAN: REFERRING PHYSICIAN: YONY OVALLES MD DATE OF SERVICE: 11/03/18 Discharge Plan Patient Name: AL FOY Facility: [facility]:[place] : 1930 Planned Disposition: Home Anticipated Discharge Date: 11/01/18 Discharge Date: 11/02/2018 Expected LOS: 2 Initial Reviewer: [email or web address] Initial Review Date: 10/30/2018 Generated: 11/03/18 4:59 pm Comments DCP- Discharge Planning Updated by [email or web address]: Page Rae on 11/02/18 9:[address] Received orders for discharge. Signed oxygen and nebulizer supplies faxed to [facility]. I called Frank with [facility] and they will deliver portable oxygen. I informed the patient that she needs portable oxygen before going home. I called and spoke to Kaleigh at [facility] and they will see her "in a couple of days". Clinical faxed to [place]. CM will continue to follow and assist with discharge planning/needs. DCP- Discharge Planning Updated by [email or web address]: Page Rae on 11/01/18 3:[address] Met with patient concerning discharge planning. She states that she needs to have her concentrator changed to a smaller one because it is too loud. She also states her nebulizer is hot when she holds it and needs new supplies. I called [facility] and Ila states she has portable oxygen and oxygen through [facility]. The patient states she does not have a portable oxygen. Walk test done and she qualifies for portable oxygen. I informed Frank with [facility] and informed of other needs and order faxed. CM will continue to follow and assist with discharge planning/needs. DCP- Discharge Planning Updated by [id number]: Rema Jones on 10/30/18 3:[address] Patient Name: AL FOY Admission Status: ER Accout number: [id number] Admission Date: 10-30-2018 : 1930 Admission Diagnosis: Attending: YONY OVALLES Current LOS: 1 Anticipated DC Date: 11-01-2018 Planned Disposition: Home Primary Insurance: MEDICARE A & B Discharge Planning Comments: CM met with patient to complete initial dc planning assessment. CM educated patient on the CM role and verbal consent given by patient to complete assessment. Patient lives at home with her sister and reports she is independent in her care. Her sister reminds her to take her medication every evening. At discharge patient plans to return to her sisters and feels this is a safe discharge. CM discussed availability of home health, rehab services, and medical equipment. Patient denied known discharge needs at this time. CM will continue to follow and will assist as needed with dc plans/needs. Hotel Receptionist: Rema Jones RN, [facility] DCPIA - Discharge Planning Initial Assessment Updated by [id number]: Rema Jones on 10/30/18 4:19 pm * Is the patient Alert and Oriented? Yes * How many steps to enter\\exit or inside your home? None * PCP Dr. Piper * Pharmacy [facility] pharmacy in [place] * Preadmission Environment Home with Family * ADLs Independent * Equipment Nebulizer Oxygen Rolling Walker * List name and contact numbers for known caregivers / representatives who currently or will assist patient after discharge: Lisa Garcia - sister - [phone] Shantell Contreras - daughter - [phone] * Verbal permission to speak to the caregivers and representatives has been obtained from the patient. Yes * Community resources currently utilized None * Additional services required to return to the preadmission environment? No * Can the patient safely return to the preadmission environment? Yes * Has this patient been hospitalized within the prior 30 days at any hospital? No Coverage Notice Reviewer: [id number] Dakotah Rae Notice Issued Date-Time: 11/02/2018 10:16 Notice Type: IM Discharge Notice Notice Delivered To: Patient Relationship to Patient: Self Octave Board Racker Name: Delivery Method: HAND - Hand Delivered Kayla Days: Prior Verbal Notification: Recipient Understood Notice: Yes Recipient Signature: Yes Med Rec Note Co-signed by Attending: Coverage Notice Comment: IMM explained, signed, given, copy placed in MR Last DP export: 11/02/18 9:55 a Patient Name: AL FOY Page [id number] at 1559 All edits/amendments must be made on the electronic document DICTATION DATE: 11/03/181557 HEALTH SAFETY SPECIALIST: STEPHAN 11/03/181557 RPT#: [id number] DC DATE:11/02/18 STATUS: DIS IN [facility] [address] [place] [address] END OF REPORT
== END 2018-11-02 15:37 | disposition home health service (06) | DRG 202 ==
LOC: D.ER 13:41 → D.MS 15:17 → D.EDHOLD 15:17 → D.MS 15:35
PROVIDERS: Emergency Medicine; ADMIT Internal Medicine Nephrology; ATTEND Internal Medicine Nephrology
DX: J20.9 Acute bronchitis, unspecified (principal); J44.0 Chronic obstructive pulmonary disease with (acute) lower respiratory infection; R09.02 Hypoxemia; R06.02 Shortness of breath; I25.10 Atherosclerotic heart disease of native coronary artery without angina pectoris; I11.0 Hypertensive heart disease with heart failure; I48.91 Unspecified atrial fibrillation

== ENCOUNTER → 2019-01-26 07:18 | Outpatient (CLI) | payer MEDICARE, BC ==
[2018-10-30 17:19] VITALS: BMI 25.8
[~2019-01-26 07:18] MED LIST changes: +ADVIL200 MG PO; +FLORAJEN3 CAPS460 MG PO; +IBUPROFEN200 MG PO; +LASIX40 MG PO; +POTASSIUM CHLO10 ME1 PO; +PREDNISONE10 MG PO; +ZITHROMAX250 MG PO
--- NOTE | 2019-01-28 09:40 | EC ---
PATIENT:AL FOY DATE OF SERVICE: 01/26/19 SEX: F MEDICAL RECORD: [id number] DATE OF : [birth year] LOCATION:D.RT AGE OF PATIENT: 88 ADMISSION DATE: 01/26/19 REFERRING PHYSICIAN: INTERPRETING PHYSICIAN: RONALD JIMENEZ MD ECHOCARDIOGRAM REPORT ECHO CHARGES 4 ECHO COMPLETE Date: 01/26/19 CLINICAL DIAGNOSIS: PULMONARY HTN HX OF PACEMAKER/CAD ECHOCARDIOGRAPHIC MEASUREMENTS (adult normal given) AC root (d.<3.7cm) 3.4 cm LV Septum d (<1.2 cm> 1.5 cm Valve Excursion 1.3 cm LV Septum (systole) 1.7 cm Left Atria (s.<4.0cm> 5.3 cm LVPW d(<1.2cm) 1.5 cm RV (d.<2.3cm) 4.2 cm LVPW (sytole) 1.7 cm LV diastole(<5.6CM) 4.0 cm MV E-F(>70mm/sec) cm LV systole 2.6 cm LVOT Diameter 1.8 cm MV exc.(>10mm) 2.0 cm Est.ejection fraction (50-75%) % DOPPLER: LVIT cm/sec A 38.0 cm/sec E 85.0 cm/sec LA cm/sec RVSP 60 mmHg LVOT 66 cm/sec AOP1/2T m/s Asc. Ao 99 cm/sec RVOT 62 cm/sec RA cm/sec PA 82 cm/sec AV Gradient Peak 3.92 mmHg AV Mean 1.73 mmHg AV Area 1.8 cm MV Gradient Peak 4.45 mmHg MV Mean 1.55 mmHg MV Area cm COMMENTS: Staff Climate Scientist: Sergio GARCIA Writing Tutor: 1 Dr. Jimenez TAPE# PACS Pericardial Effusion N DATE OF SERVICE: 01/26/2019 FINDINGS: 1. Left ventricular chamber size is within normal limits. Left ventricular systolic function is normal. Overall ejection fraction is estimated at 55%. 2. Left atrium is enlarged at 5.3 cm. Right atrium and right ventricular chamber sizes are as well mildly dilated. 3. Valvular structures have normal structure and motion. 4. Doppler interrogation reveals moderate mitral regurgitation and severe tricuspid regurgitation. No other valvular insufficiency or stenosis. ECHOCARDIOGRAM REPORT [id number] AL FOY Pulmonary systolic pressure is elevated, estimated at 60 mmHg. 5. No evidence of pericardial effusion or left ventricular thrombus. TRANSINT:[id number] Voice Confirmation ID: [id number] DOCUMENT ID: [id number] RONALD JIMENEZ MD at 0940 CC: [id number] DICTATION DATE: 01/26/19 1142 DREDGE MASTER: 01/26/19 1259 DEP CLI 01/26/19 [place] [id number] [place] [id number]
== END | disposition home or self-care (01) ==
LOC: D.RT 07:18
PROVIDERS: ATTEND Internal Medicine Pulmonary Disease
DX: J44.9 Chronic obstructive pulmonary disease, unspecified (principal); R05 Cough

== ENCOUNTER 2019-06-04 22:21 | Emergency (ER) | payer MEDICARE, BC ==
[~2019-06-04] VITALS: Ht 162.6 cm; Wt 61.4 kg
[2019-06-04 22:24] VITALS: Ht 162.6 cm; Wt 61.4 kg
[2019-06-04 23:23] LABS: BASOPHILS 0.5 % (0-2); EOSINOPHILS 1.7 % (0-7); HEMATOCRIT 41.3 % (36.0-48.0); HEMOGLOBIN 13.1 g/dL (12-16); LYMPHOCYTES 20.1 % (15-50); MCH 30.6 pg (26.0-34.0); MCHC 31.7 g/dL (31.0-37.0); MCV 96.5 fL (80.0-100.0); MEAN PLATELET VOLUME 10.6 fL (7.4-10.4); MONOCYTES 10.6 % (2-11); NEUTROPHILS 66.1 % (40-80); RBC 4.28 10x6/uL (4.00-5.40); RDW 14.4 % (11.5-14.5)
[2019-06-04 23:25] LABS: PLATELET COUNT 193 10x3/uL (130-400)
[2019-06-04 23:31] LABS: CALC OSMOLALITY 283 mosm/kg (275-300); CALCIUM 9.2 mg/dL (8.5-10.1); CARBON DIOXIDE 35.7 mmol/L (21.0-32.0); CHLORIDE - SERUM 105 mmol/L (98-107); CREATININE - SERUM 0.9 mg/dL (0.6-1.3); GLUCOSE 131 mg/dL (74-106); SODIUM 139 mmol/L (136-145); UREA NITROGEN 23 mg/dL (7-18); eGFR NON AFRICAN AMERICAN 62 mL/min (90-120)
[2019-06-04 23:34] LABS: APTT 25.1 SECONDS (22.8-39.4); INR 1.14 (0.85-1.17); PROTIME 14.1 SECONDS (11.6-15.0)
[2019-06-04 23:43] LABS: ALKALINE PHOSPHATASE 63 U/L (46-116); ALT (SGPT) 12 U/L (10-68); BILIRUBIN - TOTAL 0.66 mg/dL (0.2-1.3); PRO BNP 1966 pg/mL (0-450); PROTEIN - SERUM 7.5 g/dL (6.4-8.2)
[2019-06-04 23:49] LABS: TROPONIN-I < 0.017 ng/mL (0.000-0.060)
[2019-06-05] MEDS ORDERED: ULTRAM50 MG PO (00:10)
[2019-06-05] MEDS ORDERED: PREDNISONE20 MG PO (00:10)
[2019-06-05 00:56] VITALS: BP 132/81
== END 2019-06-05 01:01 | disposition home or self-care (01) ==
LOC: D.ER 22:21
PROVIDERS: Family Medicine
DX: S09.90XA Unspecified injury of head, initial encounter (principal); W19.XXXA Unspecified fall, initial encounter; T14.8XXA Other injury of unspecified body region, initial encounter; I10 Essential (primary) hypertension; I25.10 Atherosclerotic heart disease of native coronary artery without angina pectoris; Z79.01 Long term (current) use of anticoagulants